=== PATIENT | male | born 1975 | race Hispanic/Latino ===

== ENCOUNTER 2022-05-09 20:34 | Emergency (ER) | payer BC, OTHER ==
[~2022-05-09] VITALS: Ht 175.3 cm; Wt 114.8 kg
[2022-05-09 20:37] VITALS: BP 142/84
== END 2022-05-09 21:34 | disposition home or self-care (01) ==
LOC: EDH 20:34
DX: K42.9 Umbilical hernia without obstruction or gangrene (principal)
CPT/HCPCS: 99281